=== PATIENT | female | born 1960 | race Caucasian/White ===

== ENCOUNTER 2023-03-22 08:36 | Outpatient (CLI) | payer OTHER | END 2023-03-22 20:27 | disposition home or self-care (01) | LOC: SMI 08:36 | PROVIDERS: ATTEND Student in an Organized Health Care Education/Training Program | DX: M89.8X3 Other specified disorders of bone, forearm (principal) | CPT/HCPCS: 73221 ==

== ENCOUNTER 2023-05-03 09:29 | Day surgery (SDC) | payer OTHER ==
[2023-04-29 16:33] LABS: BASOPHILS # (AUTO) 0.1 K/uL (0.0-0.2); BASOPHILS % (AUTO) 1.2 % (0.0-2.0); EOSINOPHILS # (AUTO) 0.1 K/uL (0.0-0.4); HEMATOCRIT 43.1 % (36-48); HEMOGLOBIN 14.5 g/dL (12.0-16.0); LYMPHOCYTES # (AUTO) 3.9 K/uL (1.0-5.5); LYMPHOCYTES % (AUTO) 44.4 % (20.5-51.5); MEAN CORPUSCULAR HEMOGLOBIN 30 pg (27-31); MEAN CORPUSCULAR HGB CONC 34 % (32-36); MEAN CORPUSCULAR VOLUME 90 fL (79.0-98.0); MONOCYTES # (AUTO) 0.6 K/uL (0.0-1.0); MONOCYTES % (AUTO) 6.9 % (1.7-9.3); NEUTROPHILS # (AUTO) 4.1 K/uL (1.8-7.7); NEUTROPHILS % (AUTO) 46.5 % (40.0-70.0); PLATELET COUNT (AUTO) 317 K/uL (130-430); RED BLOOD CELL COUNT(AUTO) 4.77 MIL/uL (4.2-6.2); RED CELL DISTRIBUTION WIDTH 13.4 % (9.0-15.0); WHITE BLOOD COUNT (AUTO) 8.9 K/uL (4.8-10.8)
[2023-04-29 16:40] LABS: PROTHROMBIN TIME 9.9 SECS (9.5-12.5)
[2023-04-29 16:42] LABS: ALBUMIN 3.7 g/dL (3.4-4.8); CREATININE 0.83 mg/dL (0.55-1.30); POTASSIUM 3.8 mmol/L (3.5-5.1); TOTAL BILIRUBIN 0.6 mg/dL (0.0-1.0); TOTAL PROTEIN, SERUM 7.1 g/dL (6.4-8.3)
[~2023-05-03] VITALS: Ht 162.6 cm; Wt 74.8 kg
[2023-05-03 10:11] LABS: BILIRUBIN,URINE NEGATIVE (NEGATIVE); BLOOD, URINE NEGATIVE (NEGATIVE); CLARITY/URINE Clear (CLEAR); COLOR,URINE Light yellow (YELLOW); GLUCOSE,URINE NEGATIVE (NEGATIVE); KETONES,URINE NEGATIVE (NEGATIVE); LEUKOCYTE ESTERASE ,URINE NEGATIVE (NEGATIVE); NITRITE, URINE NEGATIVE (NEGATIVE); PH,URINE 5.5 (5.0-8.0); PROTEIN URINE NEGATIVE (NEGATIVE); UROBILINOGEN,URINE 0.2 (0.2-1.0)
[2023-05-03] MEDS ORDERED: LIDOCAINE 2%, 20 ML MDV ONE (11:03)
[2023-05-03] MEDS ORDERED: ePHEDrine sulfate 50 MG/ML VIAL ONE (11:03)
[2023-05-03] MEDS ORDERED: NS IRRIG SOLN 1000 ML IR ONE (11:03)
[2023-05-03] MEDS ORDERED: ROCURONIUM BROMIDE 10 MG/ML (ZEMURON) ONE (11:03)
[2023-05-03] MEDS ORDERED: BUPIVACAINE /PF 0.25% 30 ML VIAL INJ ONE (11:03)
[2023-05-03] MEDS ORDERED: ONDANSETRON HCL 4 MG/2 ML VIAL ONE (11:03)
[2023-05-03] MEDS ORDERED: MIDAZOLAM HCL/PF 2 MG/2 ML SYRINGE ONE (11:03)
[2023-05-03] MEDS ORDERED: SEVOFLURANE 15 MIN GAS INH ONE ×2 (11:03)
[2023-05-03] MEDS ORDERED: fentaNYL CITRATE/PF 100 MCG/2 ML AMP ONE (11:03)
[2023-05-03] MEDS ORDERED: KETOROLAC TROMETHAMINE 30 MG VIAL ONE (11:03)
[2023-05-03] MEDS ORDERED: PROPOFOL 200MG/ 20ML VIAL (DIPRIVAN) IV ONE (11:03)
[2023-05-03] MEDS ORDERED: METOCLOPRAMIDE HCL 10 MG/2 ML VIAL ONE (11:03)
[2023-05-03] MEDS ORDERED: GLYCOPYRROLATE 0.2 MG/ML VIAL ONE (11:03)
[2023-05-03] MEDS ORDERED: HYDROmorphone 1 MG/ML INJ. CARTRIDGE IVP PRN (11:45)
[2023-05-03] MEDS ORDERED: KETOROLAC TROMETHAMINE 30 MG VIAL IVP PRN (11:45)
[2023-05-03] MEDS ORDERED: ONDANSETRON HCL 4 MG/2 ML VIAL IVP PRN (11:45)
[2023-05-03] MEDS ORDERED: HYDROmorphone 2 MG/ML VIAL IVP PRN (11:45)
[2023-05-03] MEDS ORDERED: LR 1,000 ML IV SCH (11:45)
[2023-05-03] MEDS: HYDROmorphone 1 MG/ML INJ. CARTRIDGE ONE ×2 (12:35→12:50)
[2023-05-03 14:30] VITALS: O2SAT 100
[2023-05-03 14:47] VITALS: BP_SYST 122; PULSE 63; RESP 16
== END 2023-05-03 14:20 | disposition home or self-care (01) ==
LOC: SDS 09:29 → SMU 09:34 → SDS 14:20
PROVIDERS: ATTEND Surgery
DX: D17.22 Benign lipomatous neoplasm of skin and subcutaneous tissue of left arm (principal); Z79.01 Long term (current) use of anticoagulants
CPT/HCPCS: 80053; 85025; 85610; 85730; 87081; 36415; 93005; 71045; 25073; 81003; 88304; J3490 ×2; J1885; J2001; J2765; J3465; J2405; J2704; J3010; J1170